=== PATIENT | male | born 1945 | race Caucasian/White ===

== ENCOUNTER 2017-03-30 19:52 | Emergency (ER) | payer MEDICARE, BC ==
[2017-03-30] MEDS ORDERED: Ketorolac 60 MG/2 ML SDV IM ONE (20:41)
--- NOTE | 2017-03-30 20:49 | EDM.PDOC ---
ED HPI GENERAL MEDICAL PROBLEM - General Chief Complaint: Upper Extremity Injury/Pain Stated Complaint: LEFT ARM PAIN Time Seen by Provider: 03/30/17 19:59 Source of Information: Reports: Patient History Limitations: Reports: No Limitations - History of Present Illness INITIAL COMMENTS - FREE TEXT/NARRATIVE: Presents reporting that he was helping his move a rock in their yard when he felt a pop in his left upper arm. He did not fall or hit his arm. Now he has quite a bit of pain over the belly of the biceps. Treatments DRIER TAKE OFF TENDER: Reports: Other (see below) Other Treatments DRIER TAKE OFF TENDER: arm sling right shoulder Pain Score (Numeric/FACES): 7 - Related Data Allergies Allergy/AdvReac Type Severity Reaction Status Date / Time No Known Allergies Allergy Verified 03/30/17 20:00 Home Meds: Home Meds Aspirin [Low Dose Aspirin EC] 81 mg PO DAILY 08/02/16 [History] Loratadine 10 mg PO DAILY PRN 08/02/16 [History] Tamsulosin HCl [Flomax] 0.4 mg PO DAILY 08/02/16 [History] Diclofenac Sodium [Voltaren] 1 tab PO TIDMEALS PRN #20 tab.ec 03/30/17 [Rx] Past Medical History HEENT History: Reports: Hard of Hearing, Other (See Below) Other HEENT History: on hearing aid bilateral ears Cardiovascular History: Reports: None Respiratory History: Reports: None Gastrointestinal History: Reports: Other (See Below) Other Gastrointestinal History: Abdominal Ulcers Genitourinary History: Reports: Other (See Below) Other Genitourinary History: Swelling Prostate Musculoskeletal History: Reports: None Neurological History: Reports: None Psychiatric History: Reports: None Endocrine/Metabolic History: Reports: None Hematologic History: Reports: Blood Transfusion(s) Immunologic History: Reports: None Oncologic (Cancer) History: Reports: None Dermatologic History: Reports: None - Infectious Disease History Infectious Disease History: Reports: Chicken Pox, Measles, Mumps - Past Surgical History Head Surgeries/Procedures: Reports: None Cardiovascular Surgical History: Reports: None Respiratory Surgical History: Reports: None Male Surgical History: Reports: None Endocrine Surgical History: Reports: None Neurological Surgical History: Reports: None Musculoskeletal Surgical History: Reports: Other (See Below) Other Musculoskeletal Surgeries/Procedures:: left lower knee prostheis Oncologic Surgical History: Reports: None Dermatological Surgical History: Reports: None Social & Family History - Family History Family Medical History: Noncontributory - Tobacco Use Smoking Status *Q: Never Smoker - Caffeine Use Caffeine Use: Reports: Coffee - Recreational Drug Use Recreational Drug Use: No Drug Use in Last 12 Months: No Review of Systems - Review of Systems Review Of Systems: ROS reveals no pertinent complaints other than HPI. ED EXAM, GENERAL - Physical Exam Exam: See Below Exam Limited By: No Limitations General Appearance: Alert, No Apparent Distress Ears: Normal External Exam Nose: Normal Inspection Throat/Mouth: Normal Inspection Head: Atraumatic, Normocephalic Neck: Normal Inspection Respiratory/Chest: No Respiratory Distress Cardiovascular: Normal Peripheral Pulses, Regular Rate, Rhythm GI/Abdominal: Soft Extremities: Other (Last bicep firm and tender with the belly up in the arm only modestly. Full range of motion of the left wrist and elbow with quite a bit of hesitation due to pain on flexion beyond 90) Course - Vital Signs Last Recorded V/S: Last Vital Signs Temp 36.6 C 03/30/17 20:00 Pulse 76 03/30/17 20:00 Resp 16 03/30/17 20:00 BP 141/87 H 03/30/17 20:00 Pulse Ox 96 03/30/17 20:00 - Orders/Labs/Meds Orders: Active Orders 24 hr Category Date Time Status Ketorolac [Toradol] Med 03/30/17 20:41 Once 60 mg IM ONETIME ONE Medication Orders Ketorolac Tromethamine (Toradol) 60 mg IM ONETIME ONE Stop: 03/30/17 20:42 Meds: Medications Generic Name Dose Route Start Last Admin Trade Name Sabiha PRN Reason Stop Dose Admin Ketorolac Tromethamine 60 mg 03/30/17 20:41 Toradol IM 03/30/17 20:42 ONETIME ONE Departure - Departure Time of Disposition: 20:45 Disposition: Home, Self-Care 01 Condition: good Clinical Impression: Biceps rupture, distal Qualifiers: Encounter type: initial encounter Laterality: left Qualified Code(s): S46.212A - Strain of muscle, fascia and tendon of other parts of biceps, left arm, initial encounter - Discharge Information Referrals: Caleb Landeros MD [Primary Care Provider] - Lucy Norris MD [Physician] - Forms: ED Department Discharge Additional Instructions: 1. keep left arm elevated in sling, and pillow tonight 2. cool packs 30 minutes on 30 minutes off for next 24 hours while awake 3. diclofenac 3 times a day next 48 hours then as needed 4. Follow up with physical therapy as previously scheduled on Saturday 5. if symptoms worsen or do not improve please followup with orthopedics as discussed - My Orders Last 24 Hours: My Active Orders 03/30/17 20:41 Ketorolac [Toradol] 60 mg IM ONETIME ONE - Assessment/Plan Last 24 Hours: My Active Orders 03/30/17 20:41 Ketorolac [Toradol] 60 mg IM ONETIME ONE
[2017-03-30 21:34] VITALS: BP 137/86
== END 2017-03-30 21:31 | disposition home or self-care (01) ==
LOC: MW.ED 19:52
DX: S46.212A Strain of muscle, fascia and tendon of other parts of biceps, left arm, initial encounter (principal); Z79.82 Long term (current) use of aspirin; Z79.899 Other long term (current) drug therapy; Z98.890 Other specified postprocedural states; X58.XXXA Exposure to other specified factors, initial encounter
CPT/HCPCS: 96372; 99283; J1885